=== PATIENT | female | born 1945 | race Caucasian/White ===

== ENCOUNTER 2021-03-27 16:26 | Emergency (ER) | payer OTHER, MEDICARE ==
[~2021-03-27] VITALS: Ht 165.1 cm; Wt 99.8 kg
[2021-03-27 16:33] VITALS: BP_SYST 162
[2021-03-27 19:22] VITALS: BP_SYST 162
== END 2021-03-27 19:22 | disposition home or self-care (01) ==
LOC: SED 16:26
DX: S80.12XA Contusion of left lower leg, initial encounter (principal); I10 Essential (primary) hypertension; Z88.5 Allergy status to narcotic agent; Z79.899 Other long term (current) drug therapy; W18.39XA Other fall on same level, initial encounter; Y93.89 Activity, other specified; Y92.89 Other specified places as the place of occurrence of the external cause; Y99.8 Other external cause status
CPT/HCPCS: 73590-TC; 99283

== ENCOUNTER 2022-03-31 13:01 | Inpatient (IN) | payer OTHER, MEDICARE ==
[~2022-03-31] VITALS: Ht 162.6 cm; Wt 99.8 kg
[2022-03-31 13:10] VITALS: BP_SYST 62
[2022-03-31] MEDS ORDERED: NS 1000 ML IV.SOLN IV ONE (13:30)
[2022-03-31 14:13] LABS: BASOPHILS # (AUTO) 0.1 K/uL (0.0-0.2); BASOPHILS % (AUTO) 1.1 % (0.0-2.0); EOSINOPHILS # (AUTO) 0.2 K/uL (0.0-0.4); EOSINOPHILS % (AUTO) 2.2 % (0.0-4.0); HEMATOCRIT 35.3 % (36-48); HEMOGLOBIN 12.5 g/dL (12.0-16.0); LYMPHOCYTES # (AUTO) 2.1 K/uL (1.0-5.5); LYMPHOCYTES % (AUTO) 30.9 % (20.5-51.5); MEAN CORPUSCULAR HEMOGLOBIN 35 pg (27-31); MEAN CORPUSCULAR HGB CONC 36 % (32-36); MEAN CORPUSCULAR VOLUME 99 fL (79.0-98.0); MONOCYTES # (AUTO) 0.6 K/uL (0.0-1.0); MONOCYTES % (AUTO) 7.9 % (1.7-9.3); NEUTROPHILS % (AUTO) 57.9 % (40.0-70.0); PLATELET COUNT (AUTO) 211 K/uL (130-430); RED BLOOD CELL COUNT(AUTO) 3.58 MIL/uL (4.2-6.2); RED CELL DISTRIBUTION WIDTH 13.1 % (9.0-15.0)
[2022-03-31 14:19] LABS: ANION GAP 5 (5-15); CALCIUM 9.4 mg/dL (8.4-11.0); CHLORIDE 101 mmol/L (98-107); CREATININE 1.23 mg/dL (0.55-1.30); GLUCOSE 134 mg/dL (70-99); POTASSIUM 3.7 mmol/L (3.5-5.1); UREA NITROGEN, BLOOD 18 mg/dL (8-21)
[2022-03-31 14:24] LABS: ALANINE AMINOTRANSFERASE 12 U/L (12-78); ALBUMIN 3.1 g/dL (3.4-4.8); ASPARTATE AMINOTRANSFERASE 11 U/L (10-37); TOTAL BILIRUBIN 0.2 mg/dL (0.0-1.0)
[2022-03-31] MEDS ORDERED: PIPERACILLIN/TAZO 3.375 GM in NS 50 ML IV ONE (14:45)
[2022-03-31] MEDS ORDERED: VANCOMYCIN HCL 1,000 MG in NS 250 ML IV ONE (14:45)
[2022-03-31] MEDS ORDERED: PIPERACILLIN/TAZOBACTAM 3.375 GM/VIAL (ZOSYN) IV ONE (15:42)
[2022-03-31] MEDS ORDERED: VANCOMYCIN HCL 1000 MG/VIAL IV ONE (15:42)
[2022-03-31 16:10] LABS: BILIRUBIN,URINE NEGATIVE (NEGATIVE); BLOOD, URINE NEGATIVE (NEGATIVE); CLARITY/URINE CLEAR (CLEAR); COLOR,URINE YELLOW (YELLOW); GLUCOSE,URINE NEGATIVE (NEGATIVE); KETONES,URINE NEGATIVE (NEGATIVE); LEUKOCYTE ESTERASE ,URINE NEGATIVE (NEGATIVE); NITRITE, URINE NEGATIVE (NEGATIVE); PH,URINE 7.5 (5.0-8.0); PROTEIN URINE NEGATIVE (NEGATIVE); UROBILINOGEN,URINE 0.2 (0.2-1.0)
[2022-03-31] MEDS ORDERED: PHEN100C4 PO ×2 (20:34→20:36)
[2022-03-31] MEDS ORDERED: LISI20TA30 PO (20:36)
[2022-03-31] MEDS ORDERED: OMEG1CAP55 PO (20:38)
[2022-03-31] MEDS ORDERED: PHEN60TA11 PO ×2 (20:38→20:39)
[2022-03-31] MEDS ORDERED: ASA81 PO (20:41)
[2022-03-31] MEDS ORDERED: ASPIRIN 81 MG TAB.CHEW PO SCH (21:00)
[2022-03-31 23:14] VITALS: BP_SYST 123
[2022-04-01] VITALS: BP_SYST 123
[2022-04-01] MEDS ORDERED: PHENobarbital 30 MG TABLET PO SCH ×3 (09:00→21:00)
[2022-04-01] MEDS ORDERED: lisinopriL 20 MG TABLET PO SCH (09:00)
[2022-04-01] MEDS ORDERED: PHENYTOIN 100 MG CAPSULE PO SCH ×2 (09:00→21:00)
[2022-04-01 09:10] VITALS: BP_SYST 94
[2022-04-01] MEDS: ASPIRIN 81 MG TAB.CHEW PO SCH (10:11)
[2022-04-01 12:00] VITALS: BP_SYST 110
[2022-04-01 16:00] VITALS: BP_SYST 98
[2022-04-01 17:33] LABS: CHOLESTEROL 179 mg/dL (<200); HDL CHOLESTEROL 38 mg/dL (>55); LDL CHOLESTEROL 96 mg/dL (<100); TRIGLYCERIDES 377 mg/dL (30-150)
[2022-04-01] MEDS: DILANTIN 100 MG PO SCH (19:57)
[2022-04-01 20:00] VITALS: BP_SYST 106
[2022-04-02] VITALS: BP_SYST 93
[2022-04-02 08:00] VITALS: BP_SYST 106
[2022-04-02] MEDS: DILANTIN 100 MG PO SCH ×3 (09:00→09:55)
[2022-04-02] MEDS: PHENOBARBITAL 64.8 MG PO SCH ×2 (09:00→09:54)
[2022-04-02] MEDS: ATORVASTATIN 20 MG TABLET PO SCH ×2 (09:39→09:46)
[2022-04-02] MEDS: lisinopriL 20 MG TABLET PO SCH ×2 (09:40→09:48)
[2022-04-02] MEDS: DILANTIN PO SCH ×2 (09:42→09:53)
[2022-04-02] MEDS: ASPIRIN 81 MG TAB.CHEW PO SCH (09:46)
[2022-04-02 12:00] VITALS: BP_SYST 105
[2022-04-02 14:55] VITALS: BP_SYST 94
[2022-04-02 16:15] VITALS: BP_SYST 95
[2022-04-02] MEDS ORDERED: PHENOBARBITAL 64.8 MG TABLET PO SCH (21:00)
== END 2022-04-02 16:30 | disposition home or self-care (01) | DRG 313 ==
LOC: SED 13:01 → STU 20:13
PROVIDERS: ADMIT Family Medicine; ATTEND Family Medicine
DX: R07.89 Other chest pain (principal); E78.5 Hyperlipidemia, unspecified; I10 Essential (primary) hypertension; G40.909 Epilepsy, unspecified, not intractable, without status epilepticus; M19.90 Unspecified osteoarthritis, unspecified site; Z20.822 Contact with and (suspected) exposure to COVID-19; Z88.5 Allergy status to narcotic agent; Z88.8 Allergy status to other drugs, medicaments and biological substances; Z91.041 Radiographic dye allergy status; Z79.899 Other long term (current) drug therapy; Z86.73 Personal history of transient ischemic attack (TIA), and cerebral infarction without residual deficits; Z85.42 Personal history of malignant neoplasm of other parts of uterus; Z87.891 Personal history of nicotine dependence; Z90.710 Acquired absence of both cervix and uterus; Z79.82 Long term (current) use of aspirin; Z68.37 Body mass index [BMI] 37.0-37.9, adult
CPT/HCPCS: 36415; 71045; 80053; 80061; 81003; 83605; 83880; 84484; 85025; 87040; 87081; 87086; 93005; 93306; 96374; 96375; 99291; G0378; J2543; J3370

== ENCOUNTER 2022-07-12 04:12 | Inpatient (IN) | payer OTHER, MEDICARE ==
[~2022-07-12] VITALS: Ht 162.6 cm; Wt 107.5 kg
[~2022-07-12 04:12] MED LIST: ASA81 PO; LISI20TA30 PO; OMEG1CAP55 PO; PHEN100C4 PO; PHEN60TA11 PO
--- NOTE | 2022-07-12 04:12 | NUR ---
DR. BROWNING AT BEDSIDE FOR MSE. RT AT BEDSIDE.
--- NOTE | 2022-07-12 04:12 | NUR ---
Patient to ER bed 07 to gown for evaluation. Side rails up.
[2022-07-12 04:20] VITALS: BP_SYST 150
--- NOTE | 2022-07-12 04:20 | NUR ---
Patient brought in by ambulance from [place], on severe respiratory distress. Per paramedics, patiet has low saturation of 89% on RA. Breathing treatment ongoing started en route. Patient AAO x 4, GCS 15, states she became short of breath an hour prior to arrival. Patient on tripod position, with increased work of breathing, with use of accesory muscles. Patient appears pale, skin dry, cold. Patient denies chest pain, headache, abdominal pain. Denies urinary problem. Patient with swollen bilateral lower extremities with inflammation and redness. Patient states she has this condition for quite a while. Reports ambulatory with use of walker. Hooked to continuous mission support specialist, RT at bedside for breathing treatment and to hook patient on BIPAP as per ER MD order. Patient with history of COPD.
[2022-07-12] MEDS ORDERED: DEXAMETHASONE SOD PHOSPHATE 10 MG/ML VIAL IVP ONE (04:30)
[2022-07-12] MEDS ORDERED: ALBUTEROL SULFATE 0.083% 2.5 MG/3 ML VIAL.NEB INH ONE (04:30)
[2022-07-12] MEDS ORDERED: IPRATROPIUM BROM 0.5 MG/2.5 ML VIAL.NEB (ATROVENT) INH ONE (04:30)
[2022-07-12 04:54] LABS: BASOPHILS # (AUTO) 0.1 K/uL (0.0-0.2); BASOPHILS % (AUTO) 0.9 % (0.0-2.0); EOSINOPHILS # (AUTO) 0.2 K/uL (0.0-0.4); EOSINOPHILS % (AUTO) 2.9 % (0.0-4.0); HEMATOCRIT 39.1 % (36-48); HEMOGLOBIN 13.5 g/dL (12.0-16.0); LYMPHOCYTES # (AUTO) 2.6 K/uL (1.0-5.5); LYMPHOCYTES % (AUTO) 32.3 % (20.5-51.5); MEAN CORPUSCULAR HEMOGLOBIN 34 pg (27-31); MEAN CORPUSCULAR HGB CONC 35 % (32-36); MEAN CORPUSCULAR VOLUME 100 fL (79.0-98.0); MONOCYTES # (AUTO) 0.6 K/uL (0.0-1.0); MONOCYTES % (AUTO) 7.8 % (1.7-9.3); NEUTROPHILS # (AUTO) 4.5 K/uL (1.8-7.7); NEUTROPHILS % (AUTO) 56.1 % (40.0-70.0); PLATELET COUNT (AUTO) 191 K/uL (130-430); RED BLOOD CELL COUNT(AUTO) 3.92 MIL/uL (4.2-6.2); WHITE BLOOD COUNT (AUTO) 8.1 K/uL (4.8-10.8)
[2022-07-12 05:08] LABS: ANION GAP 10 (5-15); CALCIUM 9.4 mg/dL (8.4-11.0); CHLORIDE 102 mmol/L (98-107); CREATININE 0.98 mg/dL (0.55-1.30); GLUCOSE 161 mg/dL (70-99); UREA NITROGEN, BLOOD 16 mg/dL (8-21)
[2022-07-12] MEDS ORDERED: NITROGLYCERIN 1 INCH (GM) OINT. TP ONE (05:15)
[2022-07-12] MEDS ORDERED: FUROSEMIDE 40 MG/4 ML VIAL IVP ONE (05:15)
[2022-07-12 05:26] LABS: ALANINE AMINOTRANSFERASE 25 U/L (12-78); ALBUMIN 3.4 g/dL (3.4-4.8); ASPARTATE AMINOTRANSFERASE 27 U/L (10-37); TOTAL BILIRUBIN 0.3 mg/dL (0.0-1.0)
--- NOTE | 2022-07-12 05:46 | NUR ---
Admit bed requested Patient will be admitted to care of Admitted to Telemetry unit. Diagnosis Acute Respiratory Failure Inpatient (Yes or No) in Observation (Yes or No) no Orientation concerns or request close to nursing station (Yes or No) no Covid Status Negative On vent or bipap no Isolation requirements no Needs a sitter no From Home (Yes or if No enter name of facility) no, [facility] Requires Dialysis (Yes or No) no Med Rec Completed (Yes of No) pending
--- NOTE | 2022-07-12 06:30 | NUR ---
Radiology at bedside
--- NOTE | 2022-07-12 07:15 | NUR ---
Report given to BUFFY Gomes who will asssume all patient cares at this time.
--- NOTE | 2022-07-12 07:15 | NUR ---
RECEIVED PT FROM BUFFY PEÑA. ASSUMED CARE. PT IS AAOX4. ON BIPAP IPAP 14, EPAP 8, RR 16. O2 SAT 100%. NORMAL S1S2 NOTED, PT SINUS TACH HR 104. DENIES N/V/D/C. BLE 3+ EDEMA, WEAK PULSES. BUE TRACE EDEMA, BUE NORMAL PULSES. SKIN INTACT. PURE WICK IN PLACE. PT DENIES PAIN. SIDERAILS UP X2.
--- NOTE | 2022-07-12 07:36 | NUR ---
CALLED PT'S DAUGHTER TATE FRYE AND REQUESTED PT'S MEDICATION LIST, SHE STATED SHE WILL BRING THE LIST IN ABOUT 30 MINUTES. PT MADE AWARE.
--- NOTE | 2022-07-12 08:18 | NUR ---
DR. NAPIER AT BEDSIDE. PT STATED SHE WISHED TO BE DNR WITH MODIFICATIONS, NO COMPRESSIONS, NO INTUBATION. DR. NAPIER STATED HE WILL PUT THE ORDERS IN.
[2022-07-12] MEDS ORDERED: ACETAMINOPHEN 325 MG TABLET PO PRN ×2 (08:30)
[2022-07-12] MEDS ORDERED: ONDANSETRON HCL 4 MG/2 ML VIAL IVP PRN (08:30)
[2022-07-12] MEDS ORDERED: DOCUSATE SODIUM 100 MG CAPSULE PO PRN (08:30)
[2022-07-12] MEDS ORDERED: MUPIROCIN 2% TOPICAL OINTMENT 22 GM NS PRN (08:30)
[2022-07-12] MEDS ORDERED: POTASSIUM CHLORIDE 20 MEQ TAB.PRT.SR PO PRN (08:30)
[2022-07-12] MEDS ORDERED: MAGNESIUM SULFATE 50 ML IV PRN (08:30)
[2022-07-12] MEDS ORDERED: ZOLPIDEM TARTRATE 5 MG TABLET PO PRN (08:30)
[2022-07-12] MEDS ORDERED: LORazepam 2 MG/ML VIAL IVP PRN (08:30)
[2022-07-12] MEDS ORDERED: OMEG1CAP55 PO (08:35)
[2022-07-12] MEDS ORDERED: LIP40 PO (08:36)
--- NOTE | 2022-07-12 08:47 | NUR ---
DAUGHTER AT BEDSIDE AND BROUGHT PT'S HOME MEDS. SHE TOOK PT'S CLOTHING HOME.
--- NOTE | 2022-07-12 08:54 | NUR ---
RT NOTES 0854 Offloaded pt from bipap. Pt wants to have breakfast. Placed pt on 4L oxymizer, pt saturating 94%. no resp distress noted. will cont to monitor pt. BUFFY Chaves made aware of changes.
[2022-07-12 08:56] VITALS: BP_SYST 108
[2022-07-12] MEDS: ASPIRIN 81 MG TAB.CHEW PO SCH (09:12)
[2022-07-12] MEDS: PHENobarbital 30 MG TABLET PO SCH ×2 (09:12→21:39)
[2022-07-12] MEDS: LISINOPRIL 10 MG TABLET (PRINIVIL) PO SCH (09:12)
[2022-07-12] MEDS ORDERED: PHENobarbital 30 MG TABLET ONE (09:12)
[2022-07-12] MEDS: PHENYTOIN 100 MG/4 ML UDC (DILANTIN) PO SCH (09:13)
[2022-07-12] MEDS: ENOXAPARIN SODIUM 40 MG/0.4 ML SYRINGE SUBCUT SCH (09:14)
[2022-07-12] MEDS: FUROSEMIDE 20 MG/2 ML VIAL IVP SCH (09:14)
[2022-07-12] MEDS: cefTRIAXone 1 GM in D5W 50 ML IV SCH (09:15)
--- NOTE | 2022-07-12 09:42 | NUR ---
DR. NAYAK MET WITH AND ASSESSED PT.
--- NOTE | 2022-07-12 11:45 | NUR ---
rt notes 1145 Pt transport from ED 7 to 125B, pt saturating 95% on 3L oxymizer. Bipap was brought to the room for PRN. no distress at this time. will cont to monitor pt.
--- NOTE | 2022-07-12 12:00 | NUR ---
Patient will be admitted to care of BUFFY STAPLETON. Admitted to TELEMETRY unit. Will go to room 125B. Belongings list completed. Complete and up to date summary report printed. SBAR report to be given at bedside with opportunity for questions.
--- NOTE | 2022-07-12 12:15 | NUR ---
ADMISSION RECEIVED PT FROM E.R C/O BUFFY ESPINOSA, PT CAME IN WITH DIAGNOSIS OF AC. RESP FAILURE, COPD EXACERBATION/ NEW ONSET CHF. PT WILL BE ONLY THE CARE OF DR NAPIER. PT EDUCATED O THE USE OF CALL LIGHT TV AND BED CONTROLS. ENCOURAGED TO CALL FOR ASSIST , PAIN MEDS AND ANY CONCERNS. WILL CONT TO MONITOR.
[2022-07-12 13:11] VITALS: BP_SYST 95
[2022-07-12 13:36] VITALS: BP_SYST 95
[2022-07-12] MEDS: metroNIDAZOLE 500 mg/NS 100 ML IV SCH ×2 (15:03→21:37)
--- NOTE | 2022-07-12 15:36 | NUR ---
CONSULT CARDIOLOGY CHF EXAC VICKIE LENTZ SENT TEXT MESSAGE TO DR TRACEY
[2022-07-12 17:46] VITALS: BP_SYST 115
[2022-07-12 20:00] VITALS: BP_SYST 91
[2022-07-12] MEDS: PHENYTOIN 100 MG CAPSULE PO SCH (21:38)
--- NOTE | 2022-07-13 | NUR ---
ASSISTED PATIENT TO USE BEDSIDE COMMODE, SAFETY ENSURE.
[2022-07-13 00:57] VITALS: BP_SYST 88
[2022-07-13 02:15] VITALS: BP_SYST 95
[2022-07-13 05:31] LABS: BASOPHILS % (AUTO) 0.5 % (0.0-2.0); EOSINOPHILS # (AUTO) 0.2 K/uL (0.0-0.4); EOSINOPHILS % (AUTO) 2.7 % (0.0-4.0); HEMOGLOBIN 11.5 g/dL (12.0-16.0); LYMPHOCYTES # (AUTO) 1.8 K/uL (1.0-5.5); LYMPHOCYTES % (AUTO) 24.8 % (20.5-51.5); MEAN CORPUSCULAR HEMOGLOBIN 34 pg (27-31); MEAN CORPUSCULAR HGB CONC 35 % (32-36); MEAN CORPUSCULAR VOLUME 99 fL (79.0-98.0); MONOCYTES # (AUTO) 0.8 K/uL (0.0-1.0); MONOCYTES % (AUTO) 10.3 % (1.7-9.3); NEUTROPHILS # (AUTO) 4.6 K/uL (1.8-7.7); NEUTROPHILS % (AUTO) 61.7 % (40.0-70.0); PLATELET COUNT (AUTO) 167 K/uL (130-430); RED BLOOD CELL COUNT(AUTO) 3.34 MIL/uL (4.2-6.2); RED CELL DISTRIBUTION WIDTH 14.1 % (9.0-15.0); WHITE BLOOD COUNT (AUTO) 7.5 K/uL (4.8-10.8)
[2022-07-13 05:59] LABS: ANION GAP 11 (5-15); CALCIUM 8.6 mg/dL (8.4-11.0); CHLORIDE 105 mmol/L (98-107); CREATININE 0.81 mg/dL (0.55-1.30); GLUCOSE 108 mg/dL (70-99); UREA NITROGEN, BLOOD 18 mg/dL (8-21)
[2022-07-13] MEDS: metroNIDAZOLE 500 mg/NS 100 ML IV SCH ×3 (06:48→20:48)
[2022-07-13 07:50] VITALS: BP_SYST 101
--- NOTE | 2022-07-13 07:50 | NUR ---
INITIAL ROUNDS Received pt AAOx4, no s/s resp distress, no c/o pain or discomfort. Plan of care for the day reviewed with pt-pt verbalized her understanding. Noted pt with 4+ edematous bilat feet, now off-loaded on pillows, noted BLE redness and dry scabs. Pain management, skin and safety discussed-teach back done. Side rails up x3, bed alarm on for safety. call light within reach.
[2022-07-13] MEDS: LISINOPRIL 10 MG TABLET (PRINIVIL) PO SCH (09:00)
[2022-07-13] MEDS: cefTRIAXone 1 GM in D5W 50 ML IV SCH (09:46)
[2022-07-13] MEDS: FUROSEMIDE 20 MG/2 ML VIAL IVP SCH (09:47)
[2022-07-13] MEDS: ENOXAPARIN SODIUM 40 MG/0.4 ML SYRINGE SUBCUT SCH (09:47)
[2022-07-13] MEDS: ASPIRIN 81 MG TAB.CHEW PO SCH (09:48)
[2022-07-13] MEDS: PHENobarbital 30 MG TABLET PO SCH ×2 (09:48→20:47)
[2022-07-13] MEDS: PHENYTOIN 100 MG/4 ML UDC (DILANTIN) PO SCH (09:48)
[2022-07-13] MEDS ORDERED: METOPROLOL SUCCINATE 25 MG TAB.SR.24H (TOPROL XL) PO SCH (10:45)
[2022-07-13] MEDS: IPRATROPIUM/ALBUTEROL SULFATE 3 ML AMPUL.NEB (DUONEB) INH PRN (10:47)
[2022-07-13] MEDS ORDERED: METOPROLOL SUCCINATE 25 MG TAB.SR.24H (TOPROL XL) PO ONE (11:15)
[2022-07-13] MEDS ORDERED: ALBUTEROL SULFATE 0.083% 2.5 MG/3 ML VIAL.NEB INH ONE (11:45)
[2022-07-13] MEDS ORDERED: BUDESONIDE 0.5 MG/2 ML AMPUL.NEB INH ONE (11:45)
[2022-07-13 12:48] VITALS: BP_SYST 94
[2022-07-13 16:15] VITALS: BP_SYST 98
--- NOTE | 2022-07-13 18:52 | NUR ---
CLOSING NOTE Pt resting quietly in bed with no s/s resp distress, no c/o pain or discomfort. Pt reminded that she is on a fluid restriction-pt stated she would try to follow it. Skin and safety precautions remain in place. Call light within reach.
[2022-07-13] MEDS: ALBUTEROL SULFATE 0.083% 2.5 MG/3 ML VIAL.NEB INH SCH (19:00)
[2022-07-13] MEDS: BUDESONIDE 0.5 MG/2 ML AMPUL.NEB INH SCH (19:36)
[2022-07-13 20:00] VITALS: BP_SYST 90
[2022-07-13] MEDS: PHENYTOIN 100 MG CAPSULE PO SCH (20:47)
[2022-07-13] MEDS ORDERED: ATORVASTATIN 20 MG TABLET PO SCH (21:00)
--- NOTE | 2022-07-14 | NUR ---
PATIENT IS CRYING IN THE ROOM AND STATES HER IS GONE, SHE WANTS TO GO HOME. STAY WITH PATIENT AND GIVE SOME EMOTIONAL SUPPORT THEN NOW SHE IS SLEEPING AT THIS TIME.
[2022-07-14 00:24] VITALS: BP_SYST 115
[2022-07-14] MEDS: IPRATROPIUM/ALBUTEROL SULFATE 3 ML AMPUL.NEB (DUONEB) INH PRN (03:57)
[2022-07-14 06:20] LABS: BASOPHILS % (AUTO) 0.8 % (0.0-2.0); EOSINOPHILS # (AUTO) 0.3 K/uL (0.0-0.4); EOSINOPHILS % (AUTO) 4.3 % (0.0-4.0); HEMATOCRIT 33.6 % (36-48); HEMOGLOBIN 11.6 g/dL (12.0-16.0); LYMPHOCYTES # (AUTO) 1.4 K/uL (1.0-5.5); LYMPHOCYTES % (AUTO) 24.3 % (20.5-51.5); MEAN CORPUSCULAR HEMOGLOBIN 34 pg (27-31); MEAN CORPUSCULAR HGB CONC 35 % (32-36); MEAN CORPUSCULAR VOLUME 99 fL (79.0-98.0); MONOCYTES # (AUTO) 0.6 K/uL (0.0-1.0); MONOCYTES % (AUTO) 10.1 % (1.7-9.3); NEUTROPHILS # (AUTO) 3.6 K/uL (1.8-7.7); NEUTROPHILS % (AUTO) 60.5 % (40.0-70.0); PLATELET COUNT (AUTO) 171 K/uL (130-430); RED BLOOD CELL COUNT(AUTO) 3.39 MIL/uL (4.2-6.2); RED CELL DISTRIBUTION WIDTH 14.1 % (9.0-15.0); WHITE BLOOD COUNT (AUTO) 5.9 K/uL (4.8-10.8)
[2022-07-14] MEDS: metroNIDAZOLE 500 mg/NS 100 ML IV SCH (06:31)
[2022-07-14] MEDS: ALBUTEROL SULFATE 0.083% 2.5 MG/3 ML VIAL.NEB INH SCH (07:25)
[2022-07-14] MEDS: BUDESONIDE 0.5 MG/2 ML AMPUL.NEB INH SCH (07:25)
[2022-07-14 07:29] LABS: ANION GAP 10 (5-15); CALCIUM 8.5 mg/dL (8.4-11.0); CHLORIDE 105 mmol/L (98-107); CREATININE 0.72 mg/dL (0.55-1.30); GLUCOSE 120 mg/dL (70-99); UREA NITROGEN, BLOOD 12 mg/dL (8-21)
--- NOTE | 2022-07-14 07:40 | NUR ---
OPENING NOTE Received report from BUFFY Garcia. Upon entering room, patient was sitting in bed, awake and alert x4. She denies any pain or distress. She is eating breakfast calmly at this time. IV site remains intact. Call light within reach. Safety precautions observed.
[2022-07-14 08:33] VITALS: BP_SYST 123
[2022-07-14] MEDS ORDERED: AMOX-423 PO (08:49)
[2022-07-14] MEDS ORDERED: METOPROLOL SUCCINATE 25 MG TAB.SR.24H (TOPROL XL) PO SCH (09:00)
[2022-07-14] MEDS: PHENYTOIN 100 MG/4 ML UDC (DILANTIN) PO SCH (09:09)
[2022-07-14] MEDS: ASPIRIN 81 MG TAB.CHEW PO SCH (09:09)
[2022-07-14] MEDS: PHENobarbital 30 MG TABLET PO SCH (09:10)
[2022-07-14] MEDS: LISINOPRIL 10 MG TABLET (PRINIVIL) PO SCH (09:11)
[2022-07-14] MEDS: FUROSEMIDE 20 MG/2 ML VIAL IVP SCH (09:12)
[2022-07-14] MEDS: ENOXAPARIN SODIUM 40 MG/0.4 ML SYRINGE SUBCUT SCH (09:13)
[2022-07-14] MEDS: cefTRIAXone 1 GM in D5W 50 ML IV SCH (09:13)
--- NOTE | 2022-07-14 11:30 | NUR ---
FAMILY AT BEDSIDE Spoke to daughter Asha. She states she will return to pick patient up when ready to be discharged. Patient's remains at bedside at this time.
[2022-07-14 14:05] VITALS: BP_SYST 88
[2022-07-14 14:07] VITALS: BP_SYST 88
--- NOTE | 2022-07-14 15:30 | NUR ---
D/C Patient Patient given medication reconciliation form and D/C instructions. Exit Care provided. Patient verbalized understanding. MD discussed with patient the results and treatment provided. Wheelchair to vehicle for discharge to home. Patient in stable condition, ID band removed. IV catheter removed, intact and dressing applied, no active bleeding. E-Rx of augmentin given. Patient educated on pain management. All belongings sent with patient.
== END 2022-07-14 15:30 | disposition home health service (06) | DRG 189 ==
LOC: SED 04:12 → STU 05:41
PROVIDERS: ADMIT General Practice; ATTEND General Practice
PROC: 5A09357 Assistance with Respiratory Ventilation, Less than 24 Consecutive Hours, Continuous Positive Airway Pressure (ICD-10-PCS; principal; 2022-07-12)
DX: J96.01 Acute respiratory failure with hypoxia (principal); I21.A1 Myocardial infarction type 2; I50.43 Acute on chronic combined systolic (congestive) and diastolic (congestive) heart failure; J18.9 Pneumonia, unspecified organism; J44.1 Chronic obstructive pulmonary disease with (acute) exacerbation; Z68.41 Body mass index [BMI] 40.0-44.9, adult; J44.0 Chronic obstructive pulmonary disease with (acute) lower respiratory infection; I11.0 Hypertensive heart disease with heart failure; G40.909 Epilepsy, unspecified, not intractable, without status epilepticus; E78.5 Hyperlipidemia, unspecified; E66.01 Morbid (severe) obesity due to excess calories; Z20.822 Contact with and (suspected) exposure to COVID-19; Z66 Do not resuscitate; Z87.891 Personal history of nicotine dependence; Z88.8 Allergy status to other drugs, medicaments and biological substances; Z79.899 Other long term (current) drug therapy; Z88.1 Allergy status to other antibiotic agents; Z91.041 Radiographic dye allergy status; Z90.49 Acquired absence of other specified parts of digestive tract; Z90.710 Acquired absence of both cervix and uterus; Z79.82 Long term (current) use of aspirin
CPT/HCPCS: 36415; 71045; 80048; 80053; 83036; 83735; 83880; 84484; 85025; 85379; 87420; 93005; 93970; 94640; 94660; 94760; 96374; 96375; 97110-GP; 97116-GP; 97530-GP; 99285; G0378; J0696; J1100; J1650; J1940; J3490; J7060; J7613; J7626